=== PATIENT | male | born 1955 | race Caucasian/White ===

== ENCOUNTER 2017-09-17 18:59 | Emergency (ER) | payer OTHER ==
[2017-09-17] MEDS ORDERED: KETOROLAC 30 MG/ML VIAL IM ONE (20:28)
[2017-09-17] MEDS ORDERED: ORPHENADRINE CITRATE 60MG/2ML VIAL IM ONE (20:28)
--- NOTE | 2017-09-17 20:34 | Emergency Department Record ---
History of Present Illness - General Chief Complaint: Back Pain/Injury Stated Complaint: BACK PAIN Time Seen by Provider: 09/17/17 20:24 Source: Patient Mode of Arrival: Ambulatory Limitations: No limitations - History of Present Illness Initial Comments: The patient is here due to worsening back pain for one day. The patient has a long hx of chronic back pain and does see a specialist for it. He states he is supposed to see a surgeon to have surgery but has not been called for the appointment. He has had pain off and on for years and today it seems to have flared up as it has in the past. The pain is much worse with any movement and twisting. He denies any radiation of the pain down the legs and denies any leg numbness, tingling, weakenss or any bowel or bladder issues. MD Complaint: Back pain Onset/Timin -: Hour(s) Similar Symptoms Previously: Yes Place: Home Radiation: None Severity: Moderate Severity scale (1-10): 8 Quality: Dull, Sharp Consistency: Constant Improves With: Sitting upright Worsens With: Movement Context: Unknown Associated Symptoms: Denies other symptoms Treatments Prior to Arrival: Acetaminophen, Cold therapy, Heat therapy Treatment Prior to Arrival Comment:: tylenol at 0800 - Related Data Home Medications Medication Instructions Recorded Confirmed Last Taken Terazosin HCl 2 mg PO DAILY 09/17/17 09/17/17 Unknown Previous Rx's Medication Instructions Recorded Cyclobenzaprine HCl [Flexeril] 10 mg PO TID PRN #20 tablet 09/17/17 Hydrocodone/Acetaminophen [[place] 1 - 2 each PO QID #20 tablet 09/17/17 5-325 Tablet] Allergies Allergy/AdvReac Type Severity Reaction Status Date / Time Penicillins [PENICILLINS] Allergy Unknown HIVES Verified 09/17/17 20:10 aspirin [ASPIRIN] AdvReac Unknown ABDOMINAL Verified 09/17/17 20:10 CRAMPS Travel Screening - Travel/Exposure Within Last 30 Days Have you traveled within the last 30 days?: No - Travel/Exposure Within Last Year Have you traveled outside the [place] in the last year?: No - Additonal Travel Details Have you been exposed to anyone with a communicable illness?: No - Travel Symptoms Symptom Screening: None Review of Systems Constitutional: Denies: Chills, Fever Eyes: Denies: Eye discharge ENT: Denies: Congestion Respiratory: Denies: Cough, Dyspnea Past Medical History - SOCIAL HISTORY Smoking Status: Current every day smoker Alcohol Use: Rare Drug Use: None - RESPIRATORY Hx Respiratory Disorders: No - CARDIOVASCULAR Hx Cardio Disorders: Yes Hx Hypertension: Yes Comment:: hypercholesteremia - NEURO Hx Neuro Disorders: No - GI Hx GI Disorders: No - Hx Genitourinary Disorders: No - ENDOCRINE Hx Endocrine Disorders: Yes Hx Thyroid Disease: Yes - MUSCULOSKELETAL Hx Musculoskeletal Disorders: Yes Hx Back Injury: Yes - PSYCH Hx Psych Problems: No - HEMATOLOGY/ONCOLOGY Hx Hematology/Oncology Disorders: No Family Medical History Any Significant Family History?: No Physical Exam - General General Appearance: Alert, Oriented x3, Cooperative, No acute distress - Head Head exam: Atraumatic, Normocephalic, Normal inspection - Eye Eye exam: Normal appearance - ENT Throat exam: Normal inspection. negative: Tonsillar erythema, Tonsillar exudate - Neck Neck exam: Normal inspection, Full ROM. negative: Tenderness - Respiratory Respiratory exam: Normal lung sounds bilaterally. negative: Respiratory distress - Cardiovascular Cardiovascular Exam: Regular rate, Normal rhythm, Normal heart sounds - GI/Abdominal GI/Abdominal exam: Soft, Normal bowel sounds. negative: Tenderness - Extremities Extremities exam: Normal inspection, Full ROM, Normal capillary refill, Other ( Neg SLR bilaterally.). negative: Tenderness - Back Back exam: Reports: Normal inspection, Paraspinal tenderness (diffuse in the lumbar area.). Denies: Vertebral tenderness - Neurological Neurological exam: Alert, Normal gait, Oriented X3, Reflexes normal (The patella and achilles reflexes are 2+ and equal bilaterally.). negative: Abnormal gait, Motor sensory deficit (The motor and sensory exams are normal and equal in all muscle groups of the lower extremities.) Course Vital Signs 09/17/17 20:06 Temperature 98.2 F Pulse Rate 68 Respiratory 20 Rate Blood Pressure 134/73 Pulse Ox 99 - Reevaluation(s) Reevaluation #1: The patient is doing better. The pain is improved and is back down to his chronic pain level. He is able to get up and walk with very minimal difficulty. The patient is instructed to see Dr. Brooks his specialist [facility] and to return to the ER for any worsening symptoms. 09/17/17 21:14 Disposition Disposition: Discharge Clinical Impression: Chronic back pain greater than 3 months duration Disposition: Home, Self-Care Condition: (2) Stable Instructions: Chronic Back Pain (ED) Additional Instructions: Please rest and take the [place] and Flexeril as directed. Please see your PCP and your back Specialist Dr. Todd DAMICO. Return to the ER for any worsening symptoms, pain, or any leg weakness, numbness, or any bowel or bladder incontinence or inability to go. Prescriptions: Cyclobenzaprine HCl [Flexeril] 10 mg PO TID PRN #20 tablet PRN Reason: Pain Hydrocodone/Acetaminophen [[place] 5-325 Tablet] 1 - 2 each PO QID #20 tablet Forms: Patient Portal Access Time of Disposition: 21:18 Quality - Quality Measures Quality Measures: N/A - Blood Pressure Screening View Details: Yes Does Patient Have Any of the Following: No Blood Pressure Classification: Pre-Hypertensive BP Reading Systolic Measurement: 134 Diastolic Measurement: 78 Screening for High Blood Pressure: < Pre-Hypertensive BP, F/U Documented > [ G8950] Pre-Hypertensive Follow-up Interventions: Referral to alternative/primary care provider.
[2017-09-17] MEDS ORDERED: HYDROCODONE/APAP 5/325MG TABLET PO ONE (21:13)
== END 2017-09-17 21:29 | disposition home or self-care (01) ==
LOC: ER 18:59
DX: G89.29 Other chronic pain (principal); M54.5 Low back pain; I10 Essential (primary) hypertension; F17.210 Nicotine dependence, cigarettes, uncomplicated
CPT/HCPCS: 99283 ×2; 96372; J1885; J2360

== ENCOUNTER 2019-01-30 15:44 | Emergency (ER) | payer OTHER ==
[2019-01-30] MEDS ORDERED: ACETAMINOPHEN 325 MG TAB PO ONE (15:58)
--- NOTE | 2019-01-30 16:06 | Emergency Department Record ---
History of Present Illness - General Chief Complaint: Fall Injury Stated Complaint: FALL/BACK INJURY Time Seen by Provider: 01/30/19 15:52 Source: Patient Mode of Arrival: Ambulatory Limitations: No limitations - History of Present Illness Initial Comments: The patient is here due to worsening back pain for 4 days. He was helping someone move a couch when the object slipped and he landed on his buttocks twice. Since he has had worsening of his low back pain. The pain is much worse with any movement or bending. He has been able to walk slightly bent over. There is no pain radiating down his legs and no leg weakness, numbness or bladder issues. The patient has not been able to have a BM today which is not normal for him. Additionally yesterday he began to feel ill and did vomit once. The patient denies any AP, cough, ST, or dysuria but he has had a mild CHUNG but no neck pain or stiffness. MD Complaint: Fall Onset/Timin -: Days(s) Fall From: Standing Fall Witnessed: Yes, by bystander Place Fall Occurred: Home Location: Back Severity scale (1-10): 8 Quality: Aching, Sharp, Stabbing - [place] Coma Scale Eye Response: (4) Open spontaneously Motor Response: (6) Obeys commands Verbal Response: (5) Oriented [place] Total: 15 - Related Data Allergies Allergy/AdvReac Type Severity Reaction Status Date / Time Penicillins [PENICILLINS] Allergy Unknown HIVES Verified 09/17/17 20:10 aspirin [ASPIRIN] AdvReac Unknown ABDOMINAL Verified 09/17/17 20:10 CRAMPS Travel Screening - Travel/Exposure Within Last 30 Days Have you traveled within the last 30 days?: No - Travel/Exposure Within Last Year Have you traveled outside the [place] in the last year?: No - Additonal Travel Details Have you been exposed to anyone with a communicable illness?: No - Travel Symptoms Symptom Screening: None Review of Systems Constitutional: Reports: Fever, Malaise. Denies: Chills Eyes: Denies: Eye discharge ENT: Denies: Congestion Respiratory: Denies: Cough, Dyspnea Cardiovascular: Denies: Arrhythmia Endocrine: Reports: Fatigue Gastrointestinal: Reports: Nausea Genitourinary: Denies: Dysuria Musculoskeletal: Reports: Back pain. Denies: Arthralgia Skin: Denies: Bruising Past Medical History - SOCIAL HISTORY Smoking Status: Former smoker Alcohol Use: Rare Drug Use: Rare Drug Use Detail:: Marijuana - RESPIRATORY Hx Respiratory Disorders: No - CARDIOVASCULAR Hx Cardio Disorders: Yes Hx Hypertension: Yes Comment:: hypercholesteremia - NEURO Hx Neuro Disorders: No - GI Hx GI Disorders: No - Hx Genitourinary Disorders: No - ENDOCRINE Hx Endocrine Disorders: Yes Hx Thyroid Disease: Yes - MUSCULOSKELETAL Hx Musculoskeletal Disorders: Yes Hx Back Injury: Yes - PSYCH Hx Psych Problems: No - HEMATOLOGY/ONCOLOGY Hx Hematology/Oncology Disorders: No Family Medical History Any Significant Family History?: No Physical Exam - General General Appearance: Alert, Oriented x3, Cooperative, No acute distress - Head Head exam: Atraumatic, Normocephalic, Normal inspection - Eye Eye exam: Normal appearance, PERRL, EOMI - ENT Throat exam: Normal inspection. negative: Tonsillar erythema, Tonsillar exudate - Neck Neck exam: Normal inspection, Full ROM. negative: Tenderness - Respiratory Respiratory exam: Normal lung sounds bilaterally. negative: Respiratory distress - Cardiovascular Cardiovascular Exam: Regular rate, Normal rhythm, Normal heart sounds - GI/Abdominal GI/Abdominal exam: Soft, Normal bowel sounds. negative: Tenderness - Extremities Extremities exam: Normal inspection, Full ROM, Normal capillary refill, Other (Neg SLR bilaterally.). negative: Tenderness - Back Back exam: Reports: Normal inspection, Vertebral tenderness (L2-5.) - Neurological Neurological exam: Alert, Normal gait, Oriented X3, Reflexes normal. negative: Abnormal gait, Altered, Motor sensory deficit Course Vital Signs 01/30/19 15:46 Temperature 100.7 F H Pulse Rate 97 H Respiratory 16 Rate Blood Pressure 140/74 Pulse Ox 97 - Reevaluation(s) Reevaluation #1: The patient is doing better at this time. His only complaint is back pain. His Mild CHUNG has resolved and his temp is improved. 01/30/19 17:51 Reevaluation #2: The patient is doing better. His pain is improved but still present in the low back. He denies any CHUNG, cough, AP, dysuria, or neck stiffness. I did discuss the issues with the patient and did discuss what I felt the cause of the issues are. Due to the elevated WBC, CRP, ESR, and temp I do feel the patient could have a spinal abscess or a psoas abscess. I do feel he will need an MRI which we are not able to do here so after discussing it with the patient he would like t o go to [facility]. I then did discuss the case with Dr. Bowden who did accept the patient in an ER to ER transfer. 01/30/19 18:15 Reevaluation #3: The patient did urinate and had a post void residual < 100 mls. 01/30/19 18:19 Reevaluation #4: The patient is doing well at the time of transfer. He has normal motor and sensory exams of the lower extremities and is urinating normally. We will hold on antibiotics until a definitive diagnosis is made but did send 2 blood cultures. 01/30/19 18:26 Medical Decision Making - Data Complexity MDM Data: Labs Ordered and/or Reviewed, X-Ray Ordered and/or Reviewed - Lab Data Result diagrams: 01/30/19 16:12 01/30/19 16:12 - Radiology Data Radiology results: Report reviewed (CXR: Neg Lumbar spine: Neg for acute changes.) Disposition Disposition: Transfer Clinical Impression: Bacteremia Disposition: Acute Care Hospital Transfer Transfer To: [facility] Reason For Transfer: MRI Accepting Physician: Dennise Time Discussed w/Accepting Physician: 18:20 Condition: (2) Stable Forms: Patient Portal Access Time of Disposition: 18:20 Quality - Quality Measures Quality Measures: N/A - Blood Pressure Screening View Details: Yes Does Patient Have Any of the Following: No Blood Pressure Classification: Hypertensive Reading Systolic Measurement: 140 Diastolic Measurement: 74 Screening for High Blood Pressure: < First Hypertensive BP, F/U Documented > [G8950] First Hypertensive Follow-up Interventions: Referral to alternative/primary care provider.
[2019-01-30 16:17] LABS: ABSOLUTE NEUTROPHIL COUNT 14.94; HEMATOCRIT 40.6 % (42.0-52.0); HEMOGLOBIN 13.8 gm/dl (14.0-18.0); MEAN CORPUSCULAR HEMOGLOBIN 31.9 pg (27-33); MEAN PLATELET VOLUME 8.9 fl (7.4-10.4); PLATELET COUNT 317 K/uL (130-400); RED BLOOD COUNT 4.32 M/uL (4.40-5.70); RED CELL DISTRIBUTION WIDTH 13.2 % (11.5-14.5); WHITE BLOOD COUNT W/O DIFF 17.3 K/uL (4.2-12.2)
[2019-01-30] MEDS ORDERED: 0.9 % SODIUM CHLORIDE 1,000 ML BAG IV ONE ×2 (16:25→17:44)
[2019-01-30 16:27] LABS: PLATELET ESTIMATE NORMAL (NORMAL)
[2019-01-30 16:28] LABS: BLOOD UREA NITROGEN 15 mg/dL (8-23); CREATININE 0.8 mg/dL (0.7-1.2); EST GLOMERULAR FILTRATION RATE > 60 mL/min
[2019-01-30 16:29] LABS: TOTAL PROTEIN 7.1 g/dL (6.6-8.7)
[2019-01-30 16:31] LABS: GLUCOSE,RANDOM 129 mg/dL (74-109)
[2019-01-30 16:33] LABS: ALT/SGPT 18 U/L (<41)
[2019-01-30 16:34] LABS: ALB/GLOB RATIO 1.3 (1.1-1.8); ALKALINE PHOSPHATASE 80 U/L (40-129); AST/SGOT 26 U/L (10.0-50.0); C-REACTIVE PROTEIN 23.89 mg/dL (<0.5)
[2019-01-30 16:56] LABS: ERYTHROCYTE SEDIMENTATION RATE 57 mm/hr (0-20)
[2019-01-30] MEDS ORDERED: KETOROLAC 30 MG/ML VIAL IVP ONE (17:35)
[2019-01-30 17:59] LABS: URINE APPEARANCE CLEAR; URINE BILIRUBIN SMALL (NEGATIVE); URINE BLOOD TRACE-I (NEGATIVE); URINE COLOR YELLOW; URINE GLUCOSE (UA) NEGATIVE (NEGATIVE); URINE KETONE 40 mg/dL (NEGATIVE); URINE LEUKOCYTE ESTERASE NEGATIVE (NEGATIVE); URINE NITRITE NEGATIVE (NEGATIVE)
[2019-01-30 18:04] LABS: URINE EPITHELIAL CELLS NONE SEEN (FEW); URINE RBC 0 - 2 (NONE SEEN); URINE WBC NONE SEEN (0-2/hpf)
[2019-01-30 18:05] LABS: URINE BACTERIA NONE SEEN
[2019-01-30] MEDS ORDERED: ONDANSETRON HCL IV 4 MG/2 ML VIAL IVP ONE (18:25)
[2019-01-30] MEDS ORDERED: HYDROMORPHONE HCL 2 MG/ML VIAL IVP ONE (18:25)
--- NOTE | 2019-02-02 13:38 | RADIOLOGY REPORT ---
EXAM: CHEST, TWO VIEWS HISTORY: PATIENT FELL WITH FEVER. TECHNIQUE: PA and lateral views of the chest were obtained. The lateral view is technically suboptimal, but the technologist notes that there was a technical malfunction and the technologist was unable to repeat the lateral view. Comparison: Two view chest 06/22/12. FINDINGS: The heart size is normal. No definite acute infiltrate seen on the frontal view. No pleural effusion or pneumothorax evident. The lateral view is considerably compromised, but no gross infiltrate seen in the lower lungs where not totally obscured by artifact. IMPRESSION: THE CHEST APPEARS ESSENTIALLY NEGATIVE IN THE FRONTAL VIEW. LATERAL VIEW IS PARTIALLY NONDIAGNOSTIC DUE TO CONSIDERABLE OVERLYING ARTIFACT. JOB NUMBER: [id number] MTDD
--- NOTE | 2019-02-02 13:43 | RADIOLOGY REPORT ---
EXAM: LUMBAR SPINE, AP AND LATERAL VIEWS HISTORY: TRAUMA. TECHNIQUE: AP and lateral views of the lumbar spine were obtained. Comparison: Lumbar spine series 05/26/13. Encounter: Initial. FINDINGS: There is tilting of the spine to the left slightly more pronounced than before which may be due to positioning or spasm. Mild narrowing of the L3- L4 interspace slightly progressed from before with some associated hypertrophic spurring. Minor spurring at the L4-L5 interspace as well. Elsewhere the lumbar spine appears essentially negative on the limited AP and lateral only study. IMPRESSION: 1. DEGENERATIVE CHANGES AT THE L3-L4 INTERSPACE SLIGHTLY PROGRESSED FROM 05/26/13. 2. MINOR SPURRING AT THE L4-L5 INTERSPACE WELL. 3. TILTING OF THE SPINE TO THE LEFT. 4. NO DEFINITE FRACTURE OF THE LUMBAR SPINE IDENTIFIED. JOB NUMBER: [id number] MTDD
== END 2019-01-30 19:00 | disposition short-term general hospital (02) ==
LOC: ER 15:44
DX: R78.81 Bacteremia (principal); M54.5 Low back pain; R51 Headache; R79.82 Elevated C-reactive protein (CRP); D72.89 Other specified disorders of white blood cells; R50.9 Fever, unspecified; R70.0 Elevated erythrocyte sedimentation rate; I10 Essential (primary) hypertension; Z91.81 History of falling; Z87.891 Personal history of nicotine dependence
CPT/HCPCS: 71046; 72100; 80053; 81001; 85027; 85651; 86140; 96374; 96375; 99285; J1885; J2405; J7030